=== PATIENT | male | born 1965 | race Caucasian/White ===

== ENCOUNTER 2019-12-25 08:13 | Outpatient (CLI) | payer OTHER ==
[2019-12-25 14:13] LABS: Hemoglobin 16.2 g/dL (14.0-18.0); Mean Corpuscular HGB CONC 34.2 g/dL (32.0-36.0); Mean Corpuscular Volume 93.7 fL (78.0-98.0); Mean Platelet Volume 9.4 fL (7.4-10.4); Platelet Count 192 thou/uL (130-400); RBC Distribution Width 12.4 % (11.5-14.5); Red Blood Cell (RBC) Count 5.05 mill/uL (4.70-6.10); White Blood Cell (WBC) Count 8.3 thou/uL (4.8-10.8)
[2019-12-25 15:24] LABS: Anion Gap 14 mmol/L (10-20); BUN (Urea Nitrogen) 15 mg/dL (8.4-25.7); Calc. Creatinine Clearance 0 mL/min (70-130); Calcium 8.9 mg/dL (7.8-10.44); Carbon Dioxide 22 mmol/L (22-29); Chloride 105 mmol/L (98-107); Estimated GFR-MDRD 63; Glucose 97 mg/dL (70-105); Potassium 4.4 mmol/L (3.5-5.1); Sodium 137 mmol/L (136-145)
[2019-12-26 13:14] LABS: SARS-CoV-2 MS2 Positive; SARS-CoV-2 N Gene Negative; SARS-CoV-2 S Gene Negative; SARS-CoV-2 by NAA Not Detected (NotDetected); SARS-CoV-2 orf1ab Negative
== END 2019-12-25 08:14 | disposition home or self-care (01) ==
LOC: LABBT 08:13
PROVIDERS: ATTEND Neurological Surgery
DX: Z01.818 Encounter for other preprocedural examination (principal); Z20.828 Contact with and (suspected) exposure to other viral communicable diseases; M54.12 Radiculopathy, cervical region
CPT/HCPCS: 80048; 85027; 87635; 93005; 93010; U0003

== ENCOUNTER 2019-12-25 12:30 | Inpatient (IN) | payer OTHER ==
[2020-01-03 10:10] VITALS: BMI 31.9
[2020-01-06] MEDS ORDERED: Clindamycin/D5W 900 mg/50 ml Premix Bag ONE ×2 (09:18→17:04)
[2020-01-06] MEDS ORDERED: Levofloxacin 500 mg/D5W 100 ml Premix Bag ONE (09:18)
[2020-01-06] MEDS ORDERED: PROPOFOL 200 MG/20 ML VIAL ONE (09:51)
[2020-01-06] MEDS ORDERED: Ondansetron PF 4 MG/2 ML Vial ONE (09:51)
[2020-01-06] MEDS ORDERED: Dexamethasone 20 MG/5 ML VIAL ONE (09:51)
[2020-01-06] MEDS ORDERED: Lidocaine 1% PF 5 ML VIAL ONE (09:51)
[2020-01-06] MEDS ORDERED: Rocuronium Bromide 10 MG/ML (10ML VIAL) ONE (09:51)
[2020-01-06] MEDS ORDERED: Fentanyl 100 MCG/2 ML VIAL ONE ×4 (10:03→12:34)
[2020-01-06] MEDS ORDERED: SUGAMMADEX SODIUM 200 MG/2 ML VIAL ONE (11:10)
[2020-01-06] MEDS ORDERED: Morphine Sulfate 2 MG/ML SYRINGE SLOW IVP PRN (11:29)
[2020-01-06] MEDS ORDERED: Promethazine HCl 25 MG/ML VIAL SLOW IVP PRN (11:29)
[2020-01-06] MEDS ORDERED: Ketorolac Tromethamine 30 MG/ML VIAL IVP PRN (11:29)
[2020-01-06] MEDS ORDERED: HYDROmorphone 2 MG/ML VIAL SLOW IVP PRN (11:29)
[2020-01-06] MEDS ORDERED: Promethazine HCl 25 MG/ML VIAL IM PRN ×2 (11:29→12:15)
[2020-01-06] MEDS ORDERED: Meperidine HCl/PF 25 MG/ML VIAL SLOW IVP PRN (11:29)
[2020-01-06] MEDS ORDERED: PACU-Morphine 4MG/ML VIAL SLOW IVP PRN (11:29)
[2020-01-06] MEDS ORDERED: Ondansetron HCl/PF 4 MG/2 ML Vial IVP PRN (11:29)
[2020-01-06] MEDS ORDERED: Meperidine HCl/PF 25 MG/ML VIAL ONE (11:38)
--- NOTE | 2020-01-06 11:41 | OP ---
DATE OF PROCEDURE: 01/06/2020 PROFESSOR OF NURSING: Nettie Hurley PA-C PROCEDURES PERFORMED: Anterior cervical diskectomy, C4 through C7, interbody arthrodesis, intervertebral biomechanical device, local morselized autograft, demineralized bone matrix, anterior titanium instrumentation, C4 through C7. DESCRIPTION OF PROCEDURE: The patient was brought to the operating room and intubated. He was positioned supine with head in modest extension on a gel-filled donut. An incision was made in the right precervical area and dissected medial to the sternocleidomastoid muscle, identified the anterior cervical spinal, and the level was confirmed by x-ray. We debrided the anterior osteophytes, placed distraction from C4 through C7 and removed the intervertebral disks at C4-C5 and C5-C6 and C6-C7. The disk had predominantly auto-fused. The bony endplates were then decorticated for the purpose of arthrodesis at C4-C5 and C5-C6. An appropriate-sized intervertebral biomechanical PEEK device was brought into the field and filled with demineralized bone matrix, local morselized autograft, and tapped in place securely at C4-C5 and C5-C6. Next, an anterior plate was brought into the field and secured to C4, C5, C6, and C7 using two 14-mm screws at each level. It should be noted that the plate was separate and distinct and not integral to the intervertebral devices. The wound was then extensively irrigated and MAC hemostasis was secured and the wound was closed in anatomic layers. Job ID: [id number]
[2020-01-06] MEDS ORDERED: HYDROmorphone 2 MG/ML VIAL ONE ×2 (11:52→12:59)
[2020-01-06] MEDS ORDERED: tiZANidine HCl 4 MG TAB ONE ×2 (12:01→17:02)
[2020-01-06] MEDS ORDERED: Ondansetron PF 4 MG/2 ML Vial IVP PRN (12:05)
[2020-01-06] MEDS ORDERED: oxyCODONE/Acetaminophen 5 mg/325 mg Tablet PO PRN (12:10)
[2020-01-06] MEDS ORDERED: diphenhydrAMINE 50 MG/ML VIAL IVP PRN (12:15)
[2020-01-06] MEDS ORDERED: Promethazine 25 MG TAB PO PRN (12:15)
[2020-01-06] MEDS ORDERED: Promethazine HCl 12.5 MG SUPP PR PRN (12:15)
[2020-01-06] MEDS ORDERED: Milk Of Magnesia 30 ML UDCUP PO PRN (12:15)
[2020-01-06] MEDS ORDERED: Morphine 2 MG/ML VIAL SLOW IVP PRN (12:15)
[2020-01-06] MEDS ORDERED: traMADol HCl 50 MG TAB PO PRN ×2 (12:15)
[2020-01-06] MEDS ORDERED: tiZANidine HCl 4 MG TAB PO PRN (12:15)
[2020-01-06] MEDS ORDERED: Morphine 4 MG/ML VIAL SLOW IVP PRN (12:15)
[2020-01-06] MEDS ORDERED: Mag-Al 1200 mg/1200 mg/30 ML UDCUP PO PRN (12:15)
[2020-01-06] MEDS ORDERED: diphenhydrAMINE 25 MG CAP PO PRN (12:15)
[2020-01-06] MEDS ORDERED: Dexamethasone 4 mg/ml Vial ONE (12:58)
[2020-01-06] MEDS ORDERED: HYDROcodone/Acetaminophen 10/325 mg Tablet ONE (14:33)
[2020-01-06] MEDS ORDERED: Tamsulosin HCl 0.4 MG CAP ONE (16:53)
[2020-01-06] MEDS ORDERED: Morphine 4 MG/ML VIAL ONE (17:00)
[2020-01-06] MEDS: Sodium Chloride 0.9% 1,000 ML IV SCH (18:50)
[2020-01-06] MEDS: Clindamycin/D5W 900 MG in Premix Bag 1 BAG IVPB SCH (19:03)
[2020-01-06] MEDS: HYDROcodone/Acetaminophen 10/325 mg Tablet PO PRN (19:32)
[2020-01-06] MEDS ORDERED: traZODone HCl 50 MG TAB PO SCH (21:00)
[2020-01-07] MEDS: Sodium Chloride 0.9% 1,000 ML IV SCH (01:30)
[2020-01-07] MEDS: HYDROcodone/Acetaminophen 10/325 mg Tablet PO PRN (01:41)
[2020-01-07] MEDS: Clindamycin/D5W 900 MG in Premix Bag 1 BAG IVPB SCH ×2 (01:42→10:35)
[2020-01-07] MEDS ORDERED: HYDROcodone/Acetaminophen 10/325 mg Tablet PO PRN ×3 (06:00→06:18)
[2020-01-07] MEDS ORDERED: Tamsulosin HCl 0.4 MG CAP PO SCH (06:00)
[2020-01-07 09:26] VITALS: BP 153/82; TEMP 98.2
--- NOTE | 2020-01-07 09:36 | RAD ---
CERVICAL SPINE 3 VIEWS: Date: 01/07/2020 HISTORY: Postoperative study. FINDINGS: Anterior cervical fusion changes noted at C4, C5, C6, and C7. There is some air within the soft tissu e neck, somewhat moreso to the right of midline. Possible very mild prevertebral soft tissue swelling at the lower cervical spine level. Some generalized disc osteophytosis and facet arthrosis. No signi ficant malalignment. IMPRESSION: Anterior cervical fusion changes C4, C5, C6, and C7, with some minimal soft tissue air within the nec k. No significant malalignment. POS: RRE
--- NOTE | 2020-01-08 11:27 | DIS ---
DATE OF ADMISSION: 01/06/2020 DATE OF DISCHARGE: 01/07/2020 PROCEDURE: C4 through C7 anterior cervical diskectomy and fusion. HOSPITAL COURSE: The patient is a 54-year-old male recently evaluated in our office for significant cervical degenerative disease from C4 through C7, who underwent C4 through C7 ACDF on 01/06/2020. Following the surgery, he did have significant postoperative pain with some radiating pain into the right shoulder, particularly in the PACU. This was treated with a dose of steroids postoperatively and he has had significant improvement. His pain is now well controlled with p.o. Rock, he is tolerating a regular diet, and he is voiding appropriately. I will plan to check a set of postoperative x-rays to reassess hardware prior to his dismissal. We will plan to dismiss to home. I have discussed home care precautions. We will follow up with the patient in 2 weeks. EQUINE INTERN AWAMaryellen was checked prior to discharge. Job ID: [id number]
== END 2020-01-07 11:30 | disposition home or self-care (01) | DRG 473 ==
LOC: SURG A 01-06 09:33
PROVIDERS: ADMIT Neurological Surgery; ATTEND Neurological Surgery
PROC: 0RG20A0 Fusion of 2 or more Cervical Vertebral Joints with Interbody Fusion Device, Anterior Approach, Anterior Column, Open Approach (ICD-10-PCS; principal; 2020-01-06)
PROC: 0RB30ZZ Excision of Cervical Vertebral Disc, Open Approach (ICD-10-PCS; 2020-01-06)
DX: M50.121 Cervical disc disorder at C4-C5 level with radiculopathy (principal); G89.29 Other chronic pain; M47.22 Other spondylosis with radiculopathy, cervical region; Z79.899 Other long term (current) drug therapy
CPT/HCPCS: 72040; 76000; C1713; C1776; J1100; J1170; J1956; J2175; J2270; J2405; J2704; J3010; J3490

== ENCOUNTER 2020-01-01 11:30 | Outpatient (CLI) | payer OTHER ==
[2020-01-01 20:29] LABS: SARS-CoV-2 MS2 Positive; SARS-CoV-2 N Gene Negative; SARS-CoV-2 S Gene Negative; SARS-CoV-2 by NAA Not Detected (NotDetected); SARS-CoV-2 orf1ab Negative
== END 2020-01-01 11:31 | disposition home or self-care (01) ==
LOC: LABBT 11:30
PROVIDERS: ATTEND Neurological Surgery
DX: M54.12 Radiculopathy, cervical region (principal); Z20.828 Contact with and (suspected) exposure to other viral communicable diseases
CPT/HCPCS: 87635; U0003